=== PATIENT | male | born 1960 | race Caucasian/White ===

== ENCOUNTER 2019-01-27 15:24 | Emergency (ER) | payer OTHER ==
[~2019-01-27] VITALS: Ht 167.6 cm; Wt 69.9 kg
[~2019-01-27 15:24] MED LIST: MOTRIN800 MG PO; ZANTAC15 MG/ML PO
[2019-01-27] MEDS ORDERED: EXCEDRIN EXTRA1 EAC2 PO (15:41)
== END 2019-01-27 16:34 | disposition home or self-care (01) ==
LOC: ER 15:24
DX: R53.81 Other malaise (principal); F41.1 Generalized anxiety disorder